=== PATIENT | female | born 1975 | race African-American/Black ===

== ENCOUNTER 2018-10-14 13:14 | Emergency (ER) | payer BC, OTHER ==
[2018-10-14] MEDS: ONDANSETRON 4 MG INJ IV (16:45)
[2018-10-14] MEDS: SOD CHLORIDE 0.9% 1,000 ML IV (16:45)
[2018-10-14 16:51] LABS: ADD MAN DIFF? NO
[2018-10-14 16:54] LABS: WHITE BLOOD COUNT 13.8 10^3/ul (4.8-10.8)
[2018-10-14 16:54] LABS: BASOPHILS % 0.3 % (0.0-2.0); HEMATOCRIT 38.9 % (37.0-47.0); HEMOGLOBIN 12.6 g/dl (12.0-16.0); LYMPHOCYTES # 0.7 10^3/ul (0.8-2.9); LYMPHOCYTES % 4.9 % (15.0-51.0); MEAN CORPUSCULAR HEMOGLOBIN 28.8 pg (29.0-33.0); MEAN CORPUSCULAR HGB CONC 32.4 g/dl (32.0-37.0); MEAN PLATELET VOLUME 10.5 fl (7.4-10.4); MONOCYTE # 0.4 10^3/ul (0.3-0.9); MONOCYTES % 2.8 % (0.0-11.0); NEUTROPHIL # 12.6 10^3/ul (1.6-7.5); NEUTROPHILS % 91.6 % (39.0-77.0); PLATELET COUNT 318 10^3/UL (140-415); RED BLOOD COUNT 4.37 10^6/ul (4.20-5.40)
[2018-10-14] MEDS: ONDANSETRON (ODT) 4 MG TAB ODT (17:01)
[2018-10-14 17:32] LABS: ALANINE AMINOTRANSFERASE 13 IU/L (13-69); ALBUMIN 4.2 g/dl (3.3-4.9); ALKALINE PHOSPHATASE 85 IU/L (42-121); ANION GAP 12 (5-13); ASPARTATE AMINO TRANSFERASE 29 IU/L (15-46); BILIRUBIN,INDIRECT 0.8 mg/dl (0-1.1); BILIRUBIN,TOTAL 0.8 mg/dl (0.2-1.3); BLOOD UREA NITROGEN 9 mg/dl (7-20); CALCIUM 9.7 mg/dl (8.4-10.2); CARBON DIOXIDE 23 mmol/L (21-31); CHLORIDE 102 mmol/L (97-110); CREATININE 0.69 mg/dl (0.44-1.00); Estimated GFR > 60 mL/min (>60); GLUCOSE 267 mg/dl (70-220); LIPASE 25 U/L (23-300); POTASSIUM 4.7 mmol/L (3.5-5.1); SODIUM 137 mmol/L (135-144)
[2018-10-14] MEDS: METOCLOPRAMIDE 10 MG INJ IV (18:16)
== END 2018-10-14 19:40 | disposition home or self-care (01) ==
LOC: E/R 13:14
DX: R11.2 Nausea with vomiting, unspecified (principal); R19.7 Diarrhea, unspecified; E10.9 Type 1 diabetes mellitus without complications; E03.9 Hypothyroidism, unspecified
CPT/HCPCS: 36415; 80053; 82962; 83690; 84703; 85025; 96361; 96374; 96375; 99284-25